=== PATIENT | male | born 1980 | race Hispanic/Latino ===

== ENCOUNTER → 2016-10-28 | Outpatient (CLI) | payer OTHER ==
[~2016-10-28] MED LIST: CIPR500T78 PO; DCS100C PO; HYDR-3454 PO; HYDR1TAB PO; LACT1CAP66 PO; ONDA4TAB8 PO
--- NOTE | 2016-10-28 13:03 | Diagnostic Imaging Report ---
PROCEDURE: CT abdomen and pelvis without contrast. TECHNIQUE: Multiple contiguous axial images were obtained through the abdomen and pelvis without the use of intravenous contrast. INDICATION: Right upper quadrant pain. FINDINGS: The previous CT abdomen/pelvis exam of 09/06/2014 suggested appendicitis. In the interval since the prior exam, the patient has undergone an appendectomy. Surgical clips are now present about the appendix. The liver is of lower density than usually seen. This appearance does suggest fatty metamorphosis. There is no focal mass involving the liver and the biliary tree is not abnormally dilated. There is no sign of cholelithiasis or acute cholecystitis and the common bile duct is not seen to be dilated either. The spleen, pancreas, adrenals, kidneys, aorta and inferior vena cava show no sign of an acute abnormality. The stomach is partially filled with particulate matter and fluid and consequently difficult to assess. There is no pelvic mass or free fluid collection noted. There is a considerable amount of fecal material in the rectosigmoid portion of the colon. The urinary bladder is grossly unremarkable. The prostate gland is not enlarged. The bone windows are unremarkable for a fracture or for destructive lesion. The sclerotic lesion within the right ilium seen previously is again evident and no different. The lung bases are clear. IMPRESSION: 1. There is no evidence for an acute abnormality of the abdomen/pelvis. 2. There are postoperative changes consistent with an interval appendectomy. 3. The appearance of the liver does suggest fatty metamorphosis. 4. There is no abnormality of the gallbladder, however, if clinical concern regarding an underlying abnormality of the gallbladder persists, then ultrasound would be recommended for further study. Dictated by: Dictated on workstation # [id number]
== END ==
LOC: RAD 10:26
PROVIDERS: ATTEND Nurse Practitioner Family
DX: R93.2 Abnormal findings on diagnostic imaging of liver and biliary tract (principal)
CPT/HCPCS: 74176

== ENCOUNTER → 2016-10-31 | Outpatient (CLI) | payer OTHER ==
[~2016-10-31] MED LIST changes: +CATHETER FLUSH 10 ML SYR IV PRN
--- NOTE | 2016-10-31 12:17 | Diagnostic Imaging Report ---
EXAMINATION: HIDA with EF measurements Indication: Abdominal pain TECHNIQUE: After the intravenous administration of 5 mCi of Tc 99m Choletec, imaging over the abdomen was obtained. This was followed by administration of Ensure orally to stimulate intrinsic CCK secretion, followed by continued imaging with ejection fraction measured. FINDINGS: There is homogeneous uptake in the liver with prompt bile duct and gallbladder filling seen. Bowel activity is seen at 10 minutes. Based on further imaging and gallbladder area of interest activity measurements after the administration of Ensure, the gallbladder ejection fraction is estimated at 75%. IMPRESSION: 1. Normal hepatobiliary uptake and Gallbladder filling. 2. Normal gallbladder ejection fraction. Dictated by: Dictated on workstation # [id number]
== END ==
LOC: CARD 09:45
PROVIDERS: ATTEND Nurse Practitioner Family
DX: R93.2 Abnormal findings on diagnostic imaging of liver and biliary tract (principal)
CPT/HCPCS: 78227

== ENCOUNTER → 2017-01-30 | Outpatient (CLI) | payer SELFPAY ==
[~2017-01-30] MED LIST changes: -CATHETER FLUSH 10 ML SYR IV PRN; +PANT40TA2 PO
== END ==
LOC: PREOP 14:55
PROVIDERS: ATTEND Surgery
DX: Z01.818 Encounter for other preprocedural examination (principal); R10.84 Generalized abdominal pain

== ENCOUNTER 2017-01-31 08:42 | Day surgery (SDC) | payer OTHER ==
[~2017-01-31 08:42] MED LIST changes: -PANT40TA2 PO
[2017-01-31 08:46] VITALS: BP 126/75
[2017-01-31] MEDS ORDERED: LACTATED RINGERS 1,000 ML IV STA (08:52)
[2017-01-31] MEDS ORDERED: HURRICAINE EXT TUBE (BENZOCAINE) XX PRN (09:00)
--- NOTE | 2017-01-31 09:27 | Progress Note-Pre Operative ---
Pre-Operative Progress Note H&P Reviewed The H&P was reviewed, patient examined and no changes noted. Date Seen by Provider: Jan 31, 2017 Time Seen by Provider: : Date H&P Reviewed: Jan 31, 2017 Time H&P Reviewed: : Pre-Operative Diagnosis: ruq abdominal pain DAVEY RICHTER DO Jan 31, 2017 9:27 am
[2017-01-31] MEDS ORDERED: MIDAZOLAM 2 MG/2 ML (VERSED) VIAL ONE (10:02)
[2017-01-31] MEDS ORDERED: proPOfol 200 MG/20 ML (DIPRIVAN) VIAL IV ONE ×2 (10:02→10:27)
[2017-01-31] MEDS ORDERED: HURRICAINE EXT TUBE (BENZOCAINE) ONE (10:04)
--- NOTE | 2017-01-31 10:39 | Progress Note-Post Operative ---
Post-Operative Progess Note Surgeon (s)/Bioinformatics Analyst (s) Surgeon DAVEY RICHTER DO Bioinformatics Analyst: na Pre-Operative Diagnosis ruq abdominal pain Post-Operative Diagnosis gastritis Procedure & Operative Findings Date of Procedure 01/31/17 Procedure Performed/Findings egd c biopsies Anesthesia Type per real estate development manager Estimated Blood Loss Estimated blood loss (mL): scant Specimens/Packing Specimens Removed antrum, cardia of stomach DAVEY RICHTER DO Jan 31, 2017 10:38
[2017-01-31] MEDS ORDERED: PANT40TA2 PO ×2 (10:40)
--- NOTE | 2017-01-31 10:46 | Discharge Inst-Simple/Standard ---
Discharge Inst-Standard Discharge Medications New, Converted or Re-Newed RX: Transmitted to Pharmacy Patient Instructions/Follow Up Plan of Care/Instructions/FU: Follow up with Dr. Jerez in 2 weeks Take medication as directed. Activity as Tolerated: Yes Discharge Diet: No Restrictions JOSE MARIA PUCKETT APRN Jan 31, 2017 10:45
[2017-01-31 11:05] VITALS: BP 109/76
[2017-01-31 11:35] VITALS: BP 117/73
--- NOTE | 2017-01-31 11:42 | OPERATIVE REPORT ---
DATE OF SERVICE: 01/31/2017 PREOPERATIVE DIAGNOSIS: Right upper quadrant abdominal pain. POSTOPERATIVE DIAGNOSIS: Gastritis. PROCEDURE: EGD with biopsies. ANESTHESIA: Per COMMUNITY HEALTH PROGRAM REPRESENTATIVE. ESTIMATED BLOOD LOSS: Scant. SPECIMENS: Of the antrum cardia of stomach. INDICATIONS: The patient is a 36-year-old male with right upper quadrant abdominal pain. He had a CT scan, ultrasound and HIDA scan, all of which were negative. He understands risks and benefits of procedure and wished to proceed with procedure. Consent was on chart. DESCRIPTION OF PROCEDURE: The patient was taken to the endoscopy suite, placed in left lateral recumbent position. Timeout was performed. Scope was inserted in mouth, down the esophagus, stomach and into the duodenum without difficulty. There were no polyps, masses or ulcerations within the duodenum. The scope was slowly retracted back into the stomach, which had very slight erythematous changes in the antrum, but also up in the cardia significant inflamed changes which biopsies were obtained of both areas. There were no polyps, masses or ulcerations present. No hiatal hernia was present. Scope was returned to its normal position, slowly withdrawn back into the distal esophagus which had no polyps, masses or ulcerations. Scope was slowly retracted back until completely removed, noting no other pathology. RECOMMENDATIONS: The patient will be started on Protonix 40 mg daily and also Carafate 1 gram four times a day. He will follow up in the office in 3 weeks. Will see how he is doing at that time and follow up on pathology. If he has any problems prior to that, he should be reevaluated at that time. Job ID: [id number] DocumentID: [id number] Dictated Date: 01/31/2017 10:41:23 Marine Cargo Inspector Date: 01/31/2017 11:42:44 Dictated By: DAVEY RICHTER DO
[2017-01-31 11:50] VITALS: BP 117/73
== END 2017-01-31 11:50 | disposition home or self-care (01) ==
LOC: ENDO 08:42
PROVIDERS: ATTEND Surgery
DX: K29.70 Gastritis, unspecified, without bleeding (principal)

== ENCOUNTER 2019-09-18 16:59 | Emergency (ER) | payer SELFPAY ==
[~2019-09-18] VITALS: Ht 162.5 cm; Wt 92.7 kg
[~2019-09-18 16:59] MED LIST changes: +PANT40TA2 PO
--- NOTE | 2019-09-18 18:09 | ED Respiratory ---
General Chief Complaint: Respiratory Problems Stated Complaint: ASTHMA ATTACK,SORE THROAT,SOB Nursing Triage Note: AMB TO ED SAFF CALLED FROM [facility] TODAY THAT WAS SENDING PATIENT OUT FOR RESP PROBLEMS AND SOA,AND SORE THROAT STAFF RECEIVED CALL APX 1100. PATIENT JUST NOW ARRIVED BECAUSE HE WAS AT WORK. CAME IN [employer]. WHO REPORTS THAT HAS NOT HAD FEVER PATIENT FEELING LIKE HIS ASTHMA GIVING HIM PROBLEM. WAS SEEN AT [facility] ON LAST WEEK AND PLACED ON AMOXIL History of Present Illness Date Seen by Provider: Sep 18, 2019 Time Seen by Provider: 17:00 Initial Comments 39-year-old male presents for cough and shortness of air, that he experienced last night, while trying to sleep. Patient reports he was recently diagnosed with asthma, his called [facility] earlier today because he had persistent coughing overnight. They spoke to our infectious disease nurse and recommended he come here for COVID testing and shortness of air. However when the patient presents, he denies shortness of air through the day today, he was able to work all day with no complaints. He's had no fevers and no known exposure to anyone with COVID. He's had no travel outside of the [facility]. He has not used his albuterol inhaler since 8:00 this morning. He is on Flovent BID and Albuterol Q4prn. Severity: mild Associated Symptoms: No chest pain/soreness, No cough, No fever/chills, No muscle aches, No nasal congestion, No shortness of breath, No sore throat, No wheezing Allergies and Home Medications Allergies Coded Allergies: No Known Drug Allergies (Unverified , 01/12/13) Home Medications Pantoprazole Sodium 40 Mg Tablet.dr, 40 MG PO DAILY Prescribed by: JOSE MARIA WINN on 01/31/17 1040 Patient Home Medication List Home Medication List Reviewed: Yes Review of Systems Review of Systems Constitutional: no symptoms reported, see HPI; No fever EENTM: see HPI, no symptoms reported Respiratory: no symptoms reported, see HPI, cough (at night); No short of breath, No wheezing Cardiovascular: no symptoms reported, see HPI Gastrointestinal: no symptoms reported, see HPI Genitourinary: no symptoms reported, see HPI Musculoskeletal: no symptoms reported, see HPI Skin: no symptoms reported, see HPI All Other Systems Reviewed Negative Unless Noted: Yes Past Qwaqtrv-Ogozuv-Kheeya Hx Past Med/Social Hx: Reviewed Nursing Past Med/Soc Hx Patient Social History Alcohol Use: Denies Use Recreational Drug Use: No Smoking Status: Never a Smoker Recent Foreign Travel: No Contact w/Someone Who Travel: No Recent Infectious Disease Expo: No Recent Hopitalizations: No Seasonal Allergies Seasonal Allergies: No Past Medical History Surgeries: No Appendectomy Respiratory: No Cardiac: No Neurological: No Reproductive Disorders: No Kidney Stones Gastrointestinal: Yes (GALL STONES) Musculoskeletal: No Endocrine: No Cancer: No Psychosocial: No Integumentary: No Blood Disorders: No Family Medical History Diabetes Physical Exam Vital Signs - First Documented 09/18/19 16:59 Temp 36.9 Pulse 96 Resp 18 B/P (MAP) 146/96 (113) Pulse Ox 98 O2 Delivery Room Air Capillary Refill : Less Than 3 Seconds Height: 5'7" Weight: 198lbs. oz. 89.770084me; 35.00 BMI Method:Stated General Appearance: WD/WN, no apparent distress Eyes: Bilateral Eye Normal Inspection, Bilateral Eye PERRL, Bilateral Eye EOMI HEENT: PERRL/EOMI, normal ENT inspection, TMs normal, pharynx normal Neck: non-tender, full range of motion, supple, normal inspection Respiratory: chest non-tender, lungs clear, normal breath sounds, no respiratory distress Cardiovascular: normal peripheral pulses, regular rate, rhythm Gastrointestinal: normal bowel sounds, non tender, soft Neurologic/Psychiatric: no motor/sensory deficits, alert, normal mood/affect, oriented x 3 Skin: normal color, warm/dry Progress/Results/Core Measures Suspected Sepsis Recent Fever Within 48 Hours: No Infection Criteria Present: None New/Unexplained Altered Menta: No Sepsis Screen: No Definite Risk SIRS Temperature: Pulse: 96 Respiratory Rate: 18 Blood Pressure 146 /96 Mean: 113 Results/Orders Lab Results Laboratory Tests Test 09/18/19 17:00 Range/Units Group A Streptococcus Screen NEGATIVE NEGATIVE Micro Results Microbiology 09/18/19 Influenza Types A,B Antigen (ANDREWS) - Final, Complete My Orders Orders - CYNTHIA BO Rapid Strep A Screen (09/18/19 17:03) Influenza A And B Antigens (09/18/19 17:03) Vital Signs/I&O 09/18/19 09/18/19 16:59 18:32 Temp 36.9 Pulse 96 67 Resp 18 18 B/P (MAP) 146/96 (113) 128/92 Pulse Ox 98 97 O2 Delivery Room Air Room Air Capillary Refill : Less Than 3 Seconds Blood Pressure Mean: 113 Progress Note : Time: 17:00 Progress Note Patient seen and evaluated, will obtain influenza and strep swabs. He used has albuterol inhaler 2 puffs. 1745 strep and influenza negative. Discussed with infectious disease nurse, he meets no criteria for COVID testing at this time. 1800 discharge and return precautions reviewed with the patient and his . All questions answered. Departure Impression Primary Impression: Asthma Qualified Codes: J45.20 - Mild intermittent asthma, uncomplicated Disposition: HOME, SELF-CARE Condition: Improved Departure-Patient Inst. Decision time for Depature: 18:00 Referrals: JESUS MANUEL GILLESPIE DO (PCP) Primary Care Physician ENRICO LISA (Family) Primary Care Physician Patient Instructions: Asthma, Adult (DC) Add. Discharge Instructions: Continue to use her inhalers as prescribed, use her rescue inhaler 2 puffs every 4 hours with 5 minutes between inhalations. You may take Robitussin or Delsym for the cough, you may take Benadryl 25-50 mg at bedtime to help with the postnasal drainage. Increase water intake. Follow-up at [facility] if symptoms are not improving or worsen. Notify the emergency department or community health if he begins running a fever greater than 100.4, persistent cough, or shortness of breath. Return to the emergency department for new, urgent health care needs. All discharge instructions reviewed with patient and/or family. Voiced understanding. CYNTHIA BO Sep 18, 2019 18:08
[2019-09-18 18:32] VITALS: BP 128/92
--- OUTSIDE RECORDS SUMMARY | 2019-09-18 19:50 | XMS REPORT ---
Author Author [facility] Organization [facility] Address [address] [address] Care Team Providers Care Designated Broker Name Role Phone SARA BINGHAM Unavailable JESUS MANUEL GILLESPIE Unavailable MADL, ENRICO Unavailable MADL, ENRICO Unavailable MADL, ENRICO Unavailable SEEMA LOU Unavailable ZAHRA MARTINEZ Unavailable Migration, Doctor Unavailable Unavailable Migration, Doctor Unavailable Unavailable JESUS MANUEL GILLESPIE Unavailable MADL, ENRICO Unavailable MADL, ENRICO Unavailable PCP, TRANSITION Unavailable Unavailable Allergies Normalized Allergy Reported Date of Reaction(s) Care Provider Facility Allergy Type classification allergen Allergy Onset DA (21 Unclassified No Known Drug 01-12-2013 - no information SARA BINGHAM , Not Available sources.) Allergies (98624) Medications Medication Ingredient Drug Dose Dates Status Sig Sig Care Class(es) (Normalized) (Original) Provid er amoxicillin Amoxicillin Penicillin- 1000 03-02-20 Active take 2 Amoxicillin no 500 mg oral Translation class mg 12 capsules by 500 mg 2 name capsule (1 s: [ Antibacteri mouth twice capsule by (no source.) Amoxicillin al daily Oral route 2 phone) 500 mg] times per day for 14 day(s) Feb, Active esomeprazol esomeprazol Proton Pump 40 mg 02-07-20 Active take 1 Nexium 40 mg no e 40 mg e Inhibitor 14 capsule by 1 capsule by n cris oral tablet mouth once Oral route 1 (no (2 daily time per day phone) sources.) Jan, Active metroNIDAZO metroNIDAZO Nitroimidaz 500 mg 03-02-20 Active take 1 Metronidazol no LE 500 mg LE ole 12 tablet by e 500 mg 1 name oral tablet Translation Antimicrobi mouth twice tablet by (n o (1 source.) s: [ al daily Oral route 2 phone) Metronidazo times per le 500 mg] day for 14 days Feb, Active Problems Active Problems Problem Normalized Date of Normalized Normalized Provider Fac ility Classification Problem(s) Problem Problem Problem Sta tus Onset/Resoluti Duration on Diabetes Diabetes Chronic Active SARA BINGHAM , Not Avail able mellitus mellitus (67304) without without complication mention of (3 sources.) complication, type II or unspecified type, not stated as uncontrolled Other liver Other chronic Chronic Active SARA BINGHAM , No t Available diseases (3 nonalcoholic MD (23147) sources.) liver disease Past or Other Problems Problem Normalized Date of Normalized Normalized Provider Fac ility Classification Problem(s) Problem Problem Problem Sta tus Onset/Resoluti Duration on Calculus of Calculus of Episodic Completed SARA BINGHAM , Not Available urinary tract ureter (65103) (5 sources.) Allergic Diarrhea Episodic Completed CELINE SULLIVAN Not Availab le reactions (8 (42975) sources.) Gastritis and Gastritis, Episodic Completed DAVEY RICHTER , No t Available duodenitis (2 unspecified, DO (60693) sources.) without bleeding Nausea and Nausea with Episodic Completed ASRA BINGHAM , Not A vailable vomiting (3 vomiting MD (83314) sources.) Other liver Other Episodic Completed SARA BINGHAM , Not Dali ilable diseases (5 nonspecific MD (39539) sources.) abnormal serum enzyme levels Other ear and Other Episodic Completed SARA BINGHAM , Not A vailable sense organ postprocedural MD (58929) disorders (2 status sources.) Procedures Procedure Normalized Procedure Procedure Result Performer Facility Date 02-06-2014 Assay of thyroid no information no name (no phone) [facility] stimulating hormone [facility] (27098) 02-06-2014 Blood count complete no information no name (no shelia ne) [facility] auto&auto difrntl wbc [facility] (47407) 02-06-2014 Collection venous no information no name (no phone) [facility] blood venipuncture [facility] (25704) 02-06-2014 Comprehensive no information no [facility] (no phone[facility] (11379) 02-06-2014 Immunoassay nfct agt no information no name (no shelia ne) [facility] antb qual/semiquan 1 [facility] (50692) 03-22-2018 Intraoral periapical no information no name (no shelia ne) [facility] (11776) Immunizations Normalized Immunization Date Notes Care Provider Facili ty Immunization influenza, 04-24-2018 no information ZAHRA MARTINEZ [address] [facility] [place] ([address]) preservative free influenza, seasonal, 04-03-2019 no information no name [facility] injectable [facility] (54741) influenza, seasonal, 04-24-2018 - no information ZAHRA MARTINEZ [address] [facility] injectable 04-24-2018 [facility] (27038) no information 04-24-2018 no information ZAHRA MARTINEZ [address] [facility] (92738) Results Test Name Value Interpretation Reference Range Date Time Fa cility (Normalized) (Normalized) (Medline Reference) No panel information on 2019-06-24 Exp date 02/13 (no code) [facility] (49072) HbA1c (Bld) 5.8 % (no code) 0 - 5.7 % [facility] [Mass fraction] [facility] (79666) [address] (no code) [facility] (46398) Previous A1c N/A (no code) [facility] (85232) No panel information on 2019-06-12 Gamma interferon 0.03 (N) [facility] [place] [facility]n [facility] (Bld) [facility] (09038) M. tuberculosis 0.01 (N) [facility] th stim IFN-g by [facility] CD4+ CD8+ [facility] T-cells (04694) corrected for background Qn (Bld) M. tuberculosis 0.02 [IU]/mL (N) [facility] th stim IFN-g by [facility] CD4+ T-cells [facility] corrected for (98060) background Qn (Bld) M. tuberculosis no information (N) [facility] th stim IFN-g Ql [facility] (Bld) [Interp] [facility] (49268) Mitogen >10.00 (N) [facility] gamma [facility] corrected for (32949) background Qn (Bld) No panel information on 2019-04-03 Albumin 4.4 g/dL (N) 3.4 - 5.4 g/dL [facility] [Mass/Vol] [facility] () Albumin/Globulin 1.5 {ratio} (N) 1 - 2.5 {ratio} [facility] [Mass ratio] [facility] (00071) ALP [Catalytic 49 U/L (N) 44 - 147 U/L [facility] activity/Vol] [facility] () ALT [Catalytic 35 U/L (N) 4 - 40 U/L [facility] activity/Vol] [facility] (30454) AST [Catalytic 28 U/L (N) 10 - 34 U/L [facility] activity/Vol] [facility] (19766) Bilirubin 0.7 mg/dL (N) 0.1 - 1.2 mg/dL [facility] [Mass/Vol] [facility] (18551) Calcium 9.1 mg/dL (N) 8.5 - 10.2 mg/dL [facility] [Mass/Vol] [facility] (93990) Chloride 105 mmol/L (N) 95 - 106 mmol/L [facility] [Moles/Vol] [facility] (46438) Cholesterol 157 mg/dL (N) 180 - 200 mg/dL [facility] [Mass/Vol] [facility] (80077) Cholesterol in 39 mg/dL (L) [facility] [[facility]/Vol] [facility] (54819) Cholesterol in 94 mg/dL (N) 0 - 100 mg/dL [facility] LDL [Mass/Vol] [facility] (47094) Cholesterol non 118 mg/dL (N) [facility] th HDL [Mass/Vol] [facility] (20296) Cholesterol.tota 4.0 {ratio} (N) [facility] l/Cholesterol in [facility] HDL [Mass ratio] [facility] (94975) CO2 [Moles/Vol] 30 mmol/L (N) 23 - 29 mmol/L [facility] (07939) Creatinine 1.00 mg/dL (N) [facility] h [Mass/Vol] [facility] (23512) GFR/1.73 sq M 109 (N) 90 - 120 Community [facility] predicted among mL/min/{1.73_m2} mL/min/{1.73_m2} [facility] blacks MDRD [facility] (S/P/Bld) [Vol (81717) rate/Area] GFR/1.73 sq 94 (N) 90 - 120 [facility] th M.predicted MDRD mL/min/{1.73_m2} mL/min/{1.73_m2} [facility] (S/P/Bld) [Vol [facility] rate/Area] (20786) Globulin (S) 3.0 g/dL (N) 2 - 3.5 g/dL [facility] [Mass/Vol] [facility] (29855) Glucose 106 mg/dL (H) 60 - 125 mg/dL [facility] [Mass/Vol] [facility] (16867) Potassium 4.1 mmol/L (N) 3.7 - 5.2 mmol/L [facility] [Moles/Vol] [facility] (56014) Protein 7.4 g/dL (N) 6.4 - 8.3 g/dL [facility] [Mass/Vol] [facility] (13582) Sodium 142 mmol/L (N) 135 - 145 mmol/L [facility] [Moles/Vol] [facility] (09776) Triglyceride 139 mg/dL (N) 0 - 150 mg/dL [facility] [Mass/Vol] [facility] (98974) TSH Qn 1.86 m[IU]/L (N) 0.4 - 4 m[IU]/L [facility] (16609) Urea nitrogen 11 mg/dL (N) 7 - 20 mg/dL [facility] [Mass/Vol] [facility] (95665) Urea NOT APPLICABLE (no code) [facility] nitrogen/Creatin [facility] [Mass ratio] [facility] (73066) Vital Signs Vital Sign Value Interpretation Reference Date Time Care Prov ider Facility (Normalized) (Normalized) Range Body 98.4 [degF] (no code) 97.8 - 99.0 02-06-2014 ENRICODAYNE DYE [facility] Temperature [degF] 16:25-0400 70200 [facility] (48782) Body weight 80.02 kg (no code) kg 02-06-2014 ENRICO [facility] 16:25-0400 79201 [facility] (68904) Height 165.1 cm (no code) cm 03-22-2018 SEEMA RIKAING C [facility]ity 12:30-0400 [facility] (71247) Height 165.1 cm (no code) cm 02-06-2014 ENRICO MARNIE Com [facility]unity 16:250400 65724 [facility] (89488) Interventions No Information Plan of Treatment The data below is from unstructured sources Discharge Date 01/31/17 11:50am Instructions/Education Provided EGD- ESOPHAGOGASTRODUODENOSCOPY Prescriptions See Medication Section Activity Details Follow Up establish care with a pcp Reason: Activity Details Follow Up vishal Reason:builup with cr own forms #9 Activity Details Follow Up 1 Year Reason: Goals No Information Social History The data below is from unstructured sources History Response Recorde d Date/Time Alcohol Use Denies Use 0 01/12/13 12:45am Recreational Drug Use N 01/12/13 12:45am Functional Status The data below is from unstructured sourcesNo functional status results.No functional status results.No functional status results.No functional status information available.No functional status information available. Mental Status No Information Encounters Encounter Normalized Encounter Encounter Diagnosis Care Provi malu Organization Date Type 03-22-2018 Limit oral eval problm no information no name (no p luba) no organization name focus (no phone) 07-03-2019 Patient encounter no information no name (no phone) no organization name procedure (no phone) 06-24-2019 Patient encounter no information no name (no phone) no organization name procedure (no phone) 06-21-2019 Patient encounter no information no name (no phone) no organization name procedure (no phone) 06-12-2019 Patient encounter no information no name (no phone) no organization name procedure (no phone) 04-03-2019 Patient encounter no information no name (no phone) no organization name procedure (no phone) 01-31-2017 Patient encounter no information no name (no phone) no organization name - procedure (no phone) 01-31-2017 10-31-2016 Patient encounter no information no name (no phone) no organization name procedure (no phone) 10-28-2016 Patient encounter no information no name (no phone) no organization name procedure (no phone) 07-20-2015 Patient encounter no information no name (no phone) no organization name procedure (no phone) 09-24-2014 Patient encounter no information no name (no phone) no organization name procedure (no phone) 09-06-2014 Patient encounter no information no name (no phone) no organization name - procedure (no phone) 09-07-2014 10-29-2012 Patient encounter no information no name (no phone) no organization name procedure (no phone) 10-24-2012 Patient encounter no information no name (no phone) no organization name procedure (no phone) Medical Equipment No Information Payers The data below is from unstructured sources Payer Name Policy Number Subscriber Name Relationship Self Pay RodgersKiel Naya Self / Same As Patient Advance Directives Directive Response Recor ded Date Advance Directives N 12:45am Directive Response Recor ded Date/Time Advance Directives No 4:08pm Organ Donor No 09/06/14 4:08pm Resuscitation Status Full Code 09/06/14 4:08pm Directive Response Recor ded Date/Time Advance Directives No 7:03pm Organ Donor No 02/10/14 7:03pm Resuscitation Status Full Code 02/10/14 7:03pm Directive Response Recor ded Date/Time Advance Directives No 8:46am Organ Donor No 01/31/17 8:46am Resuscitation Status Full Code 01/31/17 8:46am Discharge Instructions No hospital discharge instructions.No hospital discharge instructions. Patient Instructions Physician Instructions New, Converted or Re-Newed RX: Transmitted to Pharmacy Plan of Care/Instructions/FU: Follow up with Dr. Richter in 2 weeks Take medication as directed. Activity as Tolerated: Yes Care Plan Patient Instructions:: Follow up with Dr. Richter in 2 weeksTake medication as directed. Additional Source Comments This clinical document has been generated using [employer] software that has been certified by the Office of the National Coordinator for Health Information Technology (ONC 15.99.04.3023.Diam.31.00.0.098327) and the National Committee for Automatic Grinder Operator (NCQA, as an eMeasure certified technology). FOR RECORDS PERTAINING TO PATIENTS WHO ARE OR HAVE BEEN ENROLLED IN A CHEMICAL D EPENDENCY/SUBSTANCE ABUSE PROGRAM, SOME INFORMATION MAY BE OMITTED. This clinica l summary was aggregated from multiple sources. Caution should be exercised in using it in the provision of clinical care. This summary normalizes information from multiple sources, and as a consequence, information in this document may ma terially change the coding, format and clinical context of patient data. In elias tion, data may be omitted in some cases. CLINICAL DECISIONS SHOULD BE BASED ON T HE PRIMARY CLINICAL RECORDS. [employer] provides no warranty or guara ntee of the accuracy or completeness of information in this document.The followi information is based on time limited clinical information UNRECOGNIZED CONTENT PROVIDED BELOW FOR UNRECOGNIZED SECTION MEDICAL (GENERAL) HISTORY Type Description Date Medical History Heartburn Medical History Kidney stone passes on its own seen at [facility] Surgical History Appendix 2015 Type Description Date Medical History Heartburn Medical History Kidney stone passes on its own seen at [facility] Medical History 01-31-17 EGD [facility] Chronic Gastritis and H pylori Surgical History Appendix 2015 UNRECOGNIZED CONTENT PROVIDED BELOW FOR UNRECOGNIZED SECTION REASON FOR VISIT PAINFlu shot. [id number]
--- OUTSIDE RECORDS SUMMARY | 2019-09-18 19:50 | XMS REPORT ---
Author Author Kiel Hendrickson Doctor Organization [facility] Address Unknown Phone Unavailable Care Team Providers Care Basketball Commentator Name Role Phone Migration, Doctor Unavailable Unavailable PROBLEMS Type Condition ICD9-CM Code [id number] Code Onset Dates Condition S tatus SNOMED Code Problem Abnormal ultrasound of liver R93.2 A ctive 99603010658731893 Problem Right upper quadrant abdominal pain R10.11 Active [id number] ALLERGIES No Information ENCOUNTERS Encounter Location Date Diagnosis [place] [address] [address] Nov, [address] [place] [address] Mar, 18 Encounter for immunization Z23 [facility] [address] [address] Mar, Chronic intractable headache , unspecified headache type R51 [facility] [address] [place] [id number] [place] [id number] Feb, Dental examination Z01.20 an d Caries K02.9 [facility] [address] [address] October, [facility] [address] [address] October, [place] [address] [address] October, Right upper quadrant abdomin al pain R10.11 and Abnormal ultrasound of liver R93.2 [facility] [address] [address] Jun, Heartburn R12 ; Right upper quadrant abdominal pain R10.11 and Headache, unspecified headache type R51 [facility] [address] [address] Sep, [facility] [address] [id number] [address] [place] [phone] Sep, [facility] [address] [id number] [address] [place] [phone] Feb, [facility] [address] [id number] [address] [place] [phone] Feb, [facility] [address] [id number] [address] [place] [phone] Jan, [facility] [address] [id number] [address] [place] [phone] Jan, [facility] [address] [id number] [address] [place] [phone] Jan, [facility] [address] [id number] [address] [place] [phone] Jan, [facility] [address] [id number] [address] [place] [phone] Jan, [facility] [address] [id number] [address] [place] [phone] Feb, [facility] [address] [id number] [address] [place] [phone] Mar, [facility] [address] [id number] [address] [place] [phone] Mar, IMMUNIZATIONS No Known Immunizations SOCIAL HISTORY Never Assessed REASON FOR VISIT [facility] PLAN OF CARE VITAL SIGNS MEDICATIONS Unknown Medications RESULTS No Results PROCEDURES No Known procedures INSTRUCTIONS MEDICATIONS ADMINISTERED No Known Medications MEDICAL (GENERAL) HISTORY Type Description Date Medical History Heartburn Medical History Kidney stone passes on its own seen at [facility] Medical History 01-31-[address] [facility] Chronic Gastritis and H pylori Surgical History Appendix 2014
--- OUTSIDE RECORDS SUMMARY | 2019-09-18 19:50 | XMS REPORT ---
Author Author Kiel LISA Organization [facility] Address [address] [place] [address] Care Team Providers Care Dewatering Filtering Supervisor Name Role Phone MARNIECheryle ERNICO Unavailable PROBLEMS Type Condition ICD9-CM Code [id number] Code Onset Dates Condition S tatus SNOMED Code Problem Right upper quadrant abdominal pain R10.11 Active [id number] Problem Abnormal ultrasound of liver R93.2 A ctive [id number] ALLERGIES No Information ENCOUNTERS Encounter Location Date Diagnosis [facility] [address] [id number] [address] [place] [phone] October, [facility] [address] [id number] [address] [place] [phone] October, [facility] [address] [id number] [address] [place] [phone] October, Right upper quadrant abdomin al pain R10.11 and Abnormal ultrasound of liver R93.2 [facility] [address] [id number] [address] [place] [phone] Jun, Heartburn R12 ; Right upper quadrant abdominal pain R10.11 and Headache, unspecified headache type R51 [facility] [address] [id number] [address] [place] [phone] Sep, [facility] [address] [id number] [address] [place] [phone] Sep, [facility] [address] [id number] [address] [place] [phone] Feb, [facility] [address] [id number] [address] [place] [phone] Feb, [facility] [address] [id number] [address] [place] [phone] Jan, [facility] [address] [id number] [address] [place] [phone] Jan, [facility] [address] [id number] [address] [place] [phone] Jan, [facility] [address] [id number] [address] [place] [phone] Jan, [facility] [address] [id number] [address] [place] [phone] Jan, [facility] [address] [id number] [address] [place] [phone] Feb, [facility] [address] [id number] [address] [place] [phone] Mar, [facility] [address] [id number] [address] [place] [phone] Mar, IMMUNIZATIONS No Known Immunizations SOCIAL HISTORY Never Assessed REASON FOR VISIT right side abdominal pain PLAN OF CARE VITAL SIGNS MEDICATIONS Unknown [...]
--- OUTSIDE RECORDS SUMMARY | 2019-09-18 19:50 | XMS REPORT ---
Author Author Kiel LISA Organization [facility] [place] Address [address] [place] [address] Care Team Providers Care Aircraft Metalsmith Name Role Phone MARNIECheryle ENRICO Unavailable PROBLEMS Type Condition ICD9-CM Code CHK39-XQ Code Onset Dates Condition S tatus SNOMED Code Problem Abnormal ultrasound of liver R93.2 A ctive [id number] Problem Right upper quadrant abdominal pain R10.11 Active [id number] ALLERGIES No Information ENCOUNTERS Encounter Location Date Diagnosis [facility] [address] [place] [address] Mar, 18 Encounter for immunization Z23 [facility] [address] [address] Mar, Chronic intractable headache , unspecified headache type R51 [facility] [address] [id number] [address] [place] [id number] Feb, Dental examination Z01.20 an d Caries K02.9 [facility] [place] [address] [address] October, [facility] [place] [address] [address] October, [place] [address] [address] October, Right upper quadrant abdomin al pain R10.11 and Abnormal ultrasound of liver R93.2 [facility] [place] [address] [address] Jun, Heartburn R12 ; Right upper quadrant abdominal pain R10.11 and Headache, unspecified headache type R51 [facility] [place] [address] [address] Sep, [facility] [place] [address] [id number] [address] [place] [phone] Sep, [facility] [place] [address] [id number] [address] [place] [phone] Feb, [facility] [place] [address] [id number] [address] [place] [phone] Feb, [facility] [place] [address] [id number] [address] [place] [phone] Jan, [facility] [place] [address] [id number] [address] [place] [phone] Jan, [facility] [place] [address] [id number] [address] [place] [phone] Jan, [facility] [place] [address] [id number] [address] [place] [phone] Jan, [facility] [place] [address] [id number] [address] [place] [phone] Jan, [facility] [place] [address] [id number] [address] [place] [phone] Feb, [facility] [place] [address] [id number] [address] [place] [phone] Mar, [facility] [place] [address] [id number] [address] [place] [phone] Mar, IMMUNIZATIONS No Known Immunizations SOCIAL HISTORY Never Assessed REASON FOR VISIT PLAN OF CARE VITAL SIGNS MEDICATIONS Unknown [...]
--- OUTSIDE RECORDS SUMMARY | 2019-09-18 19:50 | XMS REPORT ---
Author Author Kiel MARTINEZ Organization [facility] [address] Address [address] [place] [address] Care Team Providers Care Forming Process Worker Name Role Phone THEOZAHRA RAMIREZ Unavailable PROBLEMS Type Condition ICD9-CM Code GHG63-RW Code Onset Dates Condition S tatus SNOMED Code Problem Right upper quadrant abdominal pain R10.11 Active 346204333 Problem Abnormal ultrasound of liver R93.2 A ctive [id number] ALLERGIES No Information ENCOUNTERS Encounter Location Date Diagnosis [facility] [address] [place] [address] Mar, 18 Encounter for immunization Z23 [facility] [address] [address] Mar, Chronic intractable headache , unspecified headache type R51 [facility] [address] [place] [address] [id number] [address] [place] [phone] Feb, Dental examination Z01.20 an d Caries K02.9 [facility] [address] [address] October, [facility] [address] [address] October, [facility] [address] [address] October, Right upper quadrant abdomin al pain R10.11 and Abnormal ultrasound of liver R93.2 [facility] [address] [address] [id number] [place] [phone] Jun, Heartburn R12 ; Right upper quadrant abdominal pain R10.11 and Headache, unspecified headache type R51 [facility] [address] [place] [id number] [address] [place] [phone] Sep, [facility] [address] [id number] [address] [place] [phone] Sep, [facility] [address] [id number] [address] [place] [phone] Feb, [facility] [address] [id number] [address] [place] [phone] Feb, [facility] [address] [id number] [address] [place] [phone] Jan, [facility] [address] [id number] [address] [place] [phone] Jan, [facility] [address] [id number] [address] [place] [phone] Jan, [facility] [address] [id number] [address] [place] [phone] Jan, [facility] [address] [id number] [address] [place] [phone] Jan, [facility] [address] [id number] [address] [place] [phone] Feb, [facility] [address] [id number] [address] [place] [phone] Mar, [facility] [address] [id number] [address] [place] [phone] Mar, IMMUNIZATIONS Vaccine Route Administration Date Status FLULAVAL QUAD 0.5ML (6 MO & UP) 2017 IM Intramuscular Apr 24 Administered SOCIAL HISTORY Never Assessed REASON FOR VISIT Flu shot. Julianne PLAN OF CARE Activity Details Follow Up 1 Year Reason: VITAL SIGNS MEDICATIONS Unknown Medications RESULTS No Results PROCEDURES Procedure Date Ordered Result Body Site FLULAVAL QUAD 0.5ML (6 MO AND UP) 2017Apr 24, 2018 SINGLE IMMUNIZATION ADMIN Apr 24, 2018 INSTRUCTIONS MEDICATIONS ADMINISTERED No Known Medications MEDICAL (GENERAL) HISTORY Type Description Date Medical History Heartburn Medical History Kidney stone passes on its own seen at [facility] Medical History 01-31-17 [address] [facility] Chronic Gastritis and H pylori Surgical History Appendix 2015
--- OUTSIDE RECORDS SUMMARY | 2019-09-18 19:50 | XMS REPORT ---
Author Author RIKAKiel HOBBS SEEMA Organization [facility] Address Unknown Care Team Providers Care Tailing Hand Name Role Phone SEEMA LOU Unavailable PROBLEMS Type Condition ICD9-CM Code TAW68-AI Code Onset Dates Condition S tatus SNOMED Code Problem Right upper quadrant abdominal pain R10.11 Active 558487878 Problem Abnormal ultrasound of liver R93.2 A ctive [id number] ALLERGIES No Known Allergies ENCOUNTERS Encounter Location Date Diagnosis [facility] [address] [id number] [address] [place] [id number] Feb, Dental examination Z01.20 an d Caries K02.9 [facility] [place] [address] [id number] [address] [place] [phone] October, [facility] [place] [address] [id number] [address] [place] [phone] October, [facility] [place] [address] [id number] [address] [place] [phone] October, Right upper quadrant abdomin al pain R10.11 and Abnormal ultrasound of liver R93.2 [facility] [place] [address] [id number] [address] [place] [phone] Jun, Heartburn R12 ; Right upper quadrant abdominal pain R10.11 and Headache, unspecified headache type R51 [facility] [place] [address] [id number] [address] [place] [phone] Sep, [facility] [place] [address] [id number] [address] [place] [phone] Sep, [facility] [place] [address] [id number] [address] [place] [phone] Feb, [facility] [place] [address] [id number] [address] [place] [phone] 02 Feb, 2014 [facility] [place] [address] [id number] [address] [place] [phone] Jan, [facility] [place] [address] [id number] [address] [place] [phone] Jan, [facility] [place] [address] [id number] [address] [place] [phone] Jan, [facility] [place] [address] [id number] [address] [place] [phone] Jan, [facility] [place] [address] [id number] [address] [place] [phone] Jan, [facility] [place] [address] [id number] [address] [place] [phone] Feb, [facility] [place] [address] [id number] [address] [place] [phone] Mar, [facility] [place] [address] [id number] [address] [place] [phone] Mar, IMMUNIZATIONS No Known Immunizations SOCIAL HISTORY Never Assessed REASON FOR VISIT PAIN PLAN OF CARE Activity Details Follow Up vishal Reason:builup with tunica-biloxi n forms #9 VITAL SIGNS Height 65 in 2018-03-22 Blood pressure systolic 118 mmHg 2018-03-22 Blood pressure diastolic 78 mmHg 2018-03-22 MEDICATIONS Medication Instructions Dosage Frequency Start Date End Date Duration S tatus Nexium 40 mg oral daily 1 capsule 24h Jan, N ot-Taking RESULTS No Results PROCEDURES Procedure Date Ordered Result Body Site LTD ORAL EVALUATION - PROBLEM FOCUS Mar 22, 2018 INTRAORL-PERIAPICAL 1 FILM 94330 Mar 22, 2018 INSTRUCTIONS MEDICATIONS ADMINISTERED No Known Medications MEDICAL (GENERAL) HISTORY Type Description Date Medical History Heartburn Medical History Kidney stone passes on its own seen at [facility] Medical History 01-31-[address] [facility] Chronic Gastritis and H pylori Surgical History Appendix 2014
--- OUTSIDE RECORDS SUMMARY | 2019-09-18 19:50 | XMS REPORT ---
Author Author Kiel LISA Organization [facility] Address [address] [place] [address] Care Team Providers Care High [employer] Social Science Teacher Name Role Phone MARIA L ENRICO Unavailable PROBLEMS Type Condition ICD9-CM Code FJE04-GU Code Onset Dates Condition S tatus SNOMED Code Problem Right upper quadrant abdominal pain R10.11 Active 396674311 Problem Abnormal ultrasound of liver R93.2 A ctive [id number] ALLERGIES No Known Allergies SOCIAL HISTORY Never Assessed PLAN OF CARE Activity Details Follow Up establish care with a pcp Re ason: VITAL SIGNS Height 65 in 2016-10-25 Weight 191.0 lbs 2016-10-25 Temperature 97.6 degrees Fahrenheit 2016-10-25 Heart Rate 72 bpm 2016-10-25 Respiratory Rate 18 2016-10-25 BMI 31.78 kg/m2 2016-10-25 Blood pressure systolic 118 mmHg 2016-10-25 Blood pressure diastolic 78 mmHg 2016-10-25 MEDICATIONS Unknown Medications RESULTS Name Result Date Reference Range CBC 2016-10-25 WBC 9.6 3.4-10.8 RBC 5.09 4.14-5.80 Hemoglobin 14.9 12.6-17.7 Hematocrit 43.6 37.5-51.0 MCV 86 79-97 MCH 29.3 26.6-33.0 MCHC 34.2 31.5-35.7 RDW 13.2 12.3-15.4 Platelets 243 150-379 Neutrophils 63 Lymphs 28 Monocytes 8 Eos 1 Basos 0 Immature Cells Neutrophils (Absolute) 6.0 1.4-7.0 Lymphs (Absolute) 2.7 0.7-3.1 Monocytes(Absolute) 0.8 0.1-0.9 Eos (Absolute) 0.1 0.0-0.4 Baso (Absolute) 0.0 0.0-0.2 Immature Granulocytes 0 Immature Grans (Abs) 0.0 0.0-0.1 NRBC Hematology Comments: CMP 2016-10-25 Glucose, Serum 91 65-99 BUN 13 6-20 Creatinine, Serum 0.95 0.76-1.27 eGFR If NonAfricn Am 101 >59 eGFR If Africn Am 117 >59 BUN/Creatinine Ratio 14 9-20 Sodium, Serum 141 134-144 Potassium, Serum 4.4 3.5-5.2 Chloride, Serum 102 96-106 Carbon Dioxide, Total 21 18-29 Calcium, Serum 9.5 8.7-10.2 Protein, Total, Serum 7.4 6.0-8.5 Albumin, Serum 4.4 3.5-5.5 Globulin, Total 3.0 1.5-4.5 A/G Ratio 1.5 1.2-2.2 Bilirubin, Total 0.3 0.0-1.2 Alkaline Phosphatase, S 55 39-117 AST (SGOT) 32 0-40 ALT (SGPT) 37 0-44 CT Scan : Abdomen & Pelvis w/o Contrast HIDA Scan 2016-10-31 PROCEDURES Procedure Date Ordered Result Body Site COMPREHEN METABOLIC PANEL October 25, 2016 COMPLETE CBC W/AUTO DIFF WBC October 25, 2016 VENIPUNCT, ROUTINE* October 25, 2016 IMMUNIZATIONS No Known Immunizations MEDICAL (GENERAL) HISTORY Type Description Date Medical History Heartburn Medical History Kidney stone passes on its own seen at [facility] Surgical History Appendix 2014
--- OUTSIDE RECORDS SUMMARY | 2019-09-18 19:50 | XMS REPORT ---
Author Author Kiel LISA Organization [facility] Address [address] [place] [address] Care Team Providers Care Frame Nailer Name Role Phone MARIA L ENRICO Unavailable PROBLEMS Type Condition ICD9-CM Code MTQ29-CI Code Onset Dates Condition S tatus SNOMED Code Problem Abnormal ultrasound of liver R93.2 A ctive [id number] Problem Right upper quadrant abdominal pain R10.11 Active [id number] ALLERGIES No Information ENCOUNTERS Encounter Location Date Diagnosis [facility] [address] [place] [id number] Mar, 201 8 Encounter for immunization Z23 [facility] [address] [address] Mar, Chronic intractable headache , unspecified headache type R51 [facility] [address] [place] [address] [id number] [address] [place] [address] [id number] Feb, Dental examination Z01.20 an d Caries K02.9 [facility] [address] [address] October, [facility] [address] [address] October, [facility] [address] [address] October, Right upper quadrant abdomin al pain R10.11 and Abnormal ultrasound of liver R93.2 [facility] [address] [address] Jun, Heartburn R12 ; Right upper quadrant abdominal pain R10.11 and Headache, unspecified headache type R51 [facility] [address] [address] Sep, [facility] [address] [id number] [address] [place] [phone] Sep, [facility] [address] [id number] [address] [place] [phone] Feb, [facility] [address] [id number] [address] [place] [phone] Feb, [facility] [address] [id number] [address] [place] [phone] Jan, [facility] [address] [id number] [address] [place] [phone] Jan, [facility] [address] [id number] [address] [place] [phone] Jan, [facility] [address] [id number] [address] [place] [phone] Jan, [facility] [address] [id number] [address] [place] [phone] Jan, [facility] [address] [id number] [address] [place] [phone] Feb, [facility] [address] [id number] [address] [place] [phone] Mar, [facility] [address] [id number] [address] [place] [phone] Mar, IMMUNIZATIONS No Known Immunizations SOCIAL HISTORY Never Assessed REASON FOR VISIT PLAN OF CARE VITAL SIGNS Height 65 in 2014-02-06 Weight 176.41 lbs 2014-02-06 Temperature 98.4 degrees Fahrenheit 2014-02-06 Heart Rate 72 bpm 2014-02-06 Respiratory Rate 16 2014-02-06 Blood pressure systolic 116 mmHg 2014-02-06 Blood pressure diastolic 84 mmHg 2014-02-06 MEDICATIONS Unknown Medications RESULTS No Results PROCEDURES Procedure Date Ordered Result Body Site COMPLETE CBC W/AUTO DIFF WBC Feb 06, 2014 IMMUNOASSAY,INFECTIOUS AGENT Feb 06, 2014 ASSAY THYROID STIM HORMONE Feb 06, 2014 COMPREHEN METABOLIC PANEL Feb 06, 2014 VENIPUNCT, ROUTINE* Feb 06, 2014 INSTRUCTIONS MEDICATIONS ADMINISTERED No Known Medications MEDICAL (GENERAL) HISTORY Type Description Date Medical History Heartburn Medical History Kidney stone passes on its own seen [facility] Medical History 01-31-[address] [facility] Chronic Gastritis and H pylori Surgical History Appendix 2014
--- OUTSIDE RECORDS SUMMARY | 2019-09-18 19:50 | XMS REPORT ---
Author Author Kiel GILLESPIE Organization [facility] Address [address] [place] [address] Care Team Providers Care Health Insurance Adjuster Name Role Phone JOSE MIGUEL JESUS MANUEL Unavailable PROBLEMS Type Condition ICD9-CM Code AYM47-QL Code Onset Dates Condition S tatus SNOMED Code Problem Abnormal ultrasound of liver R93.2 A ctive [id number] Problem Right upper quadrant abdominal pain R10.11 Active 578833533 ALLERGIES No Information ENCOUNTERS Encounter Location Date Diagnosis [facility] [address] [place] [address] Mar, 18 Encounter for immunization Z23 [facility] [address] [address] Mar, Chronic intractable headache , unspecified headache type R51 [facility] [address] [place] [id number] [place] [id number] Feb, Dental examination Z01.20 an d Caries K02.9 [facility] [address] [place] [address] October, [facility] [address] [address] October, [address] [address] October, Right upper quadrant abdomin al pain R10.11 and Abnormal ultrasound of liver R93.2 [facility] [address] [place] [address] Jun, Heartburn R12 ; Right upper quadrant abdominal pain R10.11 and Headache, unspecified headache type R51 [facility] [address] [address] Sep, [facility] [address] [id number] [address] [place] [phone] Sep, [facility] [address] [id number] [address] [place] [phone] Feb, [facility] [address] [id number] [address] [place] [phone] Feb, [facility] [address] [id number] [address] [place] [phone] Jan, [facility] [address] [id number] [address] [place] [phone] Jan, [facility] [address] [id number] [address] [place] [phone] Jan, [facility] [address] [id number] [address] [place] [phone] Jan, [facility] [address] [id number] [address] [place] [phone] Jan, [facility] [address] [id number] [address] [place] [phone] Feb, [facility] [address] [id number] [address] [place] [phone] Mar, [facility] [address] [id number] [address] [place] [phone] Mar, IMMUNIZATIONS No Known Immunizations SOCIAL HISTORY [...]
--- OUTSIDE RECORDS SUMMARY | 2019-09-18 19:50 | XMS REPORT ---
Author Author Kiel Hendrickson Doctor Organization [facility] Address Unknown Phone Unavailable Care Team Providers Care Life Enrichment Director Name Role Phone Migration, Doctor Unavailable Unavailable PROBLEMS Type Condition ICD9-CM Code KCR26-NP Code Onset Dates Condition S tatus SNOMED Code Problem Abnormal ultrasound of liver R93.2 A ctive [id number] Problem Right upper quadrant abdominal pain R10.11 Active [id number] ALLERGIES No Information ENCOUNTERS Encounter Location Date Diagnosis [facility] [address] [place] [address] Mar, 18 Encounter for immunization Z23 [facility] [address] [address] Mar, Chronic intractable headache , unspecified headache type R51 [facility] [address] [id number] [place] [id number] Feb, Dental examination Z01.20 an d Caries K02.9 [facility] [address] [address] October, [facility] [address] [address] October, [facility] [address] [address] October, Right upper quadrant abdomin al pain R10.11 and Abnormal ultrasound of liver R93.2 [facility] [address] [id number] [address] [place] [phone] Jun, Heartburn R12 ; Right upper quadrant abdominal pain R10.11 and Headache, unspecified headache type R51 [facility] [address] [id number] [address] [place] [phone] Sep, [facility] [address] [id number] [address] [place] [phone] Sep, [facility] [address] [id number] [address] [place] [phone] Feb, [facility] [address] [id number] [address] [place] [phone] Feb, [facility] [address] [id number] [address] [place] [phone] Jan, [facility] [address] [id number] [address] [place] [phone] Jan, [facility] [address] [id number] [address] [place] [phone] Jan, [facility] [address] [id number] [address] [place] [phone] Jan, [facility] [address] [id number] [address] [place] [phone] Jan, [facility] [address] [id number] [address] [place] [phone] Feb, [facility] [address] [id number] [address] [place] [phone] Mar, [facility] [address] [id number] [address] [place] [phone] Mar, IMMUNIZATIONS No Known Immunizations SOCIAL HISTORY Never Assessed REASON FOR VISIT [facility] PLAN OF CARE VITAL SIGNS MEDICATIONS Medication Instructions Dosage Frequency Start Date End Date Duration S tatus Nexium 40 mg 1 capsule by Oral route 1 time per day 14 A 2013 Active Metronidazole 500 mg 1 tablet by Oral route 2 times pe r day for 14 days Feb, Active Amoxicillin 500 mg 2 capsule by Oral route 2 times per day for 14 day(s) Feb, Active RESULTS No Results PROCEDURES No Known procedures INSTRUCTIONS MEDICATIONS ADMINISTERED No Known Medications MEDICAL (GENERAL) HISTORY Type Description Date Medical History [facility] History Kidney stone passes on its own seen [facility] 01-31-[address] [facility] Chronic Gastritis and H pylori Surgical History Appendix 2014
--- OUTSIDE RECORDS SUMMARY | 2019-09-18 19:50 | XMS REPORT ---
Author Author Kiel LISA [facility] Address [address] [place] [address] Care Team Providers Care Tire Man Name Role Phone ENRICO LISA Unavailable PROBLEMS Type Condition ICD9-CM Code LTR35-CW Code Onset Dates Condition S tatus SNOMED Code Problem Right upper quadrant abdominal pain R10.11 Active [id number] Problem Abnormal ultrasound of liver R93.2 A ctive [id number] ALLERGIES No Information SOCIAL HISTORY Never Assessed PLAN OF CARE VITAL SIGNS MEDICATIONS Unknown Medications RESULTS No Results PROCEDURES No Known procedures IMMUNIZATIONS No Known Immunizations MEDICAL (GENERAL) HISTORY Type Description Date Medical History Heartburn Medical History Kidney stone passes on its own seen at [facility] History Appendix 2014
== END 2019-09-18 18:32 | disposition home or self-care (01) ==
LOC: EDUNIT# 16:59 → ER 17:01
DX: J45.20 Mild intermittent asthma, uncomplicated (principal)
CPT/HCPCS: 87430; 87804

== ENCOUNTER 2020-07-06 19:55 | Emergency (ER) | payer SELFPAY ==
[~2020-07-06] VITALS: Ht 167 cm; Wt 86.1 kg
--- NOTE | 2020-07-06 20:22 | ED General ---
General Stated Complaint: LEFT ARM PAIN, LEFT LEG PAIN Source of Information: Patient Exam Limitations: No Limitations History of Present Illness Date Seen by Provider: Jul 06, 2020 Time Seen by Provider: 20:16 Initial Comments To ER with reports of left arm pain and left leg pain. This has been present for 2 weeks and getting worse. He has also had headaches. He states that at night his left leg goes to sleep. The pain is not alleviated by anything but it is worsened when he gets angry. The pain to the left arm is over the volar side of the forearm over about a 6 inch segment of a very specific vein. Similarly into the dorsum of the left foot is about a 1 inch segment of vein that is tender. The remainder of the foot and arm is nontender. Timing/Duration: 1-2 Days Severity: Moderate Associated Systoms: Denies Symptoms Allergies and Home Medications Allergies Coded Allergies: No Known Drug Allergies (Unverified , 01/12/13) Home Medications Pantoprazole Sodium 40 Mg Tablet.dr, 40 MG PO DAILY Prescribed by: JOSE MARIA WINN on 01/31/17 1040 Patient Home Medication List Home Medication List Reviewed: Yes Review of Systems Review of Systems Constitutional: see HPI; No chills, No fever EENTM: see HPI Respiratory: no symptoms reported Cardiovascular: no symptoms reported; No chest pain, No palpitations Genitourinary: no symptoms reported Musculoskeletal: no symptoms reported Skin: no symptoms reported Psychiatric/Neurological: No Symptoms Reported Hematologic/Lymphatic: No Symptoms Reported Past Iecqtlf-Apdscm-Pjtrde Hx Patient Social History Recent Hopitalizations: No Seasonal Allergies Seasonal Allergies: No Past Medical History Surgeries: No Appendectomy Respiratory: No Cardiac: No Neurological: No Reproductive Disorders: No Kidney Stones Gastrointestinal: Yes (GALL STONES) Musculoskeletal: No Endocrine: No Cancer: No Psychosocial: No Integumentary: No Blood Disorders: No Family Medical History Diabetes Physical Exam Vital Signs Vital Signs - First Documented 07/06/20 20:05 Temp 35.9 Pulse 78 Resp 16 B/P (MAP) 145/98 (114) Pulse Ox 98 O2 Delivery Room Air Capillary Refill : Height, Weight, BMI Height: 5'7" Weight: 198lbs. oz. 89.057174wf; 35.00 BMI Method:Stated General Appearance: No Apparent Distress, WD/WN Eyes: Bilateral Eye Normal Inspection, Bilateral Eye PERRL, Bilateral Eye EOMI HEENT: PERRL/EOMI, TMs Normal Neck: Full Range of Motion, Normal Inspection Respiratory: No Accessory Muscle Use, No Respiratory Distress Cardiovascular: Regular Rate, Rhythm, Normal Peripheral Pulses Gastrointestinal: Normal Bowel Sounds, Non Tender, Soft Extremity: Normal Capillary Refill, Normal Inspection Neurologic/Psychiatric: Alert, Oriented x3 Skin: Normal Color, Warm/Dry, Other (The veins at the site of pain are easily compressible and without any erythema or tenderness to palpation no firmness and no "palpable cord" as would be typical of a superficial thrombophlebitis) Progress/Results/Core Measures Suspected Sepsis SIRS Temperature: Pulse: Respiratory Rate: Laboratory Tests 07/06/20 20:22: White Blood Count 9.4 Blood Pressure / Mean: Laboratory Tests 07/06/20 20:22: Creatinine 1.18, Platelet Count 209, Total Bilirubin 0.4 Results/Orders Lab Results Laboratory Tests Test 07/06/20 20:22 Range/Units White Blood Count 9.4 4.3-11.0 10^3/uL Red Blood Count 5.31 4.30-5.52 10^6/uL Hemoglobin 15.1 13.3-17.7 g/dL Hematocrit 45 40-54 % Mean Corpuscular Volume 84 80-99 fL Mean Corpuscular Hemoglobin 28 25-34 pg Mean Corpuscular Hemoglobin Concent 34 32-36 g/dL Red Cell Distribution Width 12.4 10.0-14.5 % Platelet Count 209 130-400 10^3/uL Mean Platelet Volume 11.6 9.0-12.2 fL Immature Granulocyte % (Auto) 0 % Neutrophils (%) (Auto) 57 42-75 % Lymphocytes (%) (Auto) 31 12-44 % Monocytes (%) (Auto) 9 0-12 % Eosinophils (%) (Auto) 2 0-10 % Basophils (%) (Auto) 1 0-10 % Neutrophils # (Auto) 5.3 1.8-7.8 10^3/uL Lymphocytes # (Auto) 2.9 1.0-4.0 10^3/uL Monocytes # (Auto) 0.9 0.0-1.0 10^3/uL Eosinophils # (Auto) 0.2 0.0-0.3 10^3/uL Basophils # (Auto) 0.1 0.0-0.1 10^3/uL Immature Granulocyte # (Auto) 0.0 0.0-0.1 10^3/uL D-Dimer <= 0.27 0.00-0.49 UG/ML Sodium Level 141 135-145 MMOL/L Potassium Level 3.7 3.6-5.0 MMOL/L Chloride Level 106 98-107 MMOL/L Carbon Dioxide Level 24 21-32 MMOL/L Anion Gap 11 5-14 MMOL/L Blood Urea Nitrogen 13 7-18 MG/DL Creatinine 1.18 0.60-1.30 MG/DL Estimat Glomerular Filtration Rate > 60 BUN/Creatinine Ratio 11 Glucose Level 109 H 70-105 MG/DL Calcium Level 9.3 8.5-10.1 MG/DL Corrected Calcium 9.2 8.5-10.1 MG/DL Total Bilirubin 0.4 0.1-1.0 MG/DL Aspartate Amino Transf (AST/SGOT) 28 5-34 U/L Alanine Aminotransferase (ALT/SGPT) 43 0-55 U/L Alkaline Phosphatase 53 40-136 U/L Troponin I < 0.028 <0.028 NG/ML C-Reactive Protein High Sensitivity 0.24 0.00-0.50 MG/DL Total Protein 7.3 6.4-8.2 GM/DL Albumin 4.1 3.2-4.5 GM/DL My Orders Orders - CELINE SULLIVAN SUPERVISOR EDUCATION Cbc With Automated Diff (07/06/20 20:14) Hs C Reactive Protein (07/06/20 20:14) Troponin I (07/06/20 20:14) Ekg Tracing (07/06/20 20:14) Chest 1 View, Ap/Pa Only (07/06/20 20:14) Fibrin Degradation Products (07/06/20 20:14) Ed Iv/Invasive Line Start (07/06/20 20:14) Comprehensive Metabolic Panel (07/06/20 20:57) Ct Head Wo (07/06/20 21:04) Vital Signs/I&O 07/06/20 20:05 Temp 35.9 Pulse 78 Resp 16 B/P (MAP) 145/98 (114) Pulse Ox 98 O2 Delivery Room Air Capillary Refill : Departure Impression Primary Impression: Left arm pain Additional Impression: Left leg pain Disposition: HOME, SELF-CARE Condition: Stable Departure-Patient Inst. Decision time for Depature: 22:05 Referrals: [facility] (PCP/Family) Primary Care Physician Patient Instructions: Acute Pain, Adult Add. Discharge Instructions: 1. Return to ER for any concerns. Follow-up with [facility]. Call tomorrow for a time. CELINE SULLIVAN APRN Jul 06, 2020 20:22
[2020-07-06 20:31] LABS: BASOPHILS # (AUTO) 0.1 10^3/uL (0.0-0.1); BASOPHILS % (AUTO) 1 % (0-10); EOSINOPHILS # (AUTO) 0.2 10^3/uL (0.0-0.3); EOSINOPHILS % (AUTO) 2 % (0-10); HEMATOCRIT 45 % (40-54); HEMOGLOBIN 15.1 g/dL (13.3-17.7); LYMPHOCYTES # (AUTO) 2.9 10^3/uL (1.0-4.0); LYMPHOCYTES % (AUTO) 31 % (12-44); MEAN CORPUSCULAR HEMOGLOBIN 28 pg (25-34); MEAN CORPUSCULAR HGB CONC 34 g/dL (32-36); MEAN CORPUSCULAR VOLUME 84 fL (80-99); MEAN PLATELET VOLUME 11.6 fL (9.0-12.2); MONOCYTES # (AUTO) 0.9 10^3/uL (0.0-1.0); MONOCYTES % (AUTO) 9 % (0-12); NEUTROPHILS # (AUTO) 5.3 10^3/uL (1.8-7.8); NEUTROPHILS % (AUTO) 57 % (42-75); PLATELET COUNT 209 10^3/uL (130-400); WHITE BLOOD COUNT 9.4 10^3/uL (4.3-11.0)
--- NOTE | 2020-07-06 21:05 | Diagnostic Imaging Report ---
INDICATION: Chest pain Frontal chest obtained at 0841 p.m. Heart and mediastinal silhouette are normal in appearance. The lungs are clear. There is no pneumothorax or pleural fluid. IMPRESSION: Negative chest. Dictated by: Dictated on workstation # [id number]
[2020-07-06 21:15] LABS: ALBUMIN 4.1 GM/DL (3.2-4.5); CHLORIDE 106 MMOL/L (98-107); POTASSIUM 3.7 MMOL/L (3.6-5.0); SODIUM 141 MMOL/L (135-145)
[2020-07-06 21:16] LABS: CALCIUM 9.3 MG/DL (8.5-10.1)
[2020-07-06 21:17] LABS: GLUCOSE 109 MG/DL (70-105); TOTAL PROTEIN 7.3 GM/DL (6.4-8.2)
[2020-07-06 21:18] LABS: CARBON DIOXIDE 24 MMOL/L (21-32)
[2020-07-06 21:19] LABS: BILIRUBIN,TOTAL 0.4 MG/DL (0.1-1.0)
[2020-07-06 21:21] LABS: ALKALINE PHOSPHATASE 53 U/L (40-136); CREATININE SERUM 1.18 MG/DL (0.60-1.30); GFR ESTIMATED > 60
[2020-07-06 21:22] LABS: BUN/CREATININE RATIO 11
[2020-07-06 21:24] LABS: ALANINE AMINOTRANSFERASE 43 U/L (0-55)
--- NOTE | 2020-07-06 21:39 | Diagnostic Imaging Report ---
INDICATION: Headache. TECHNIQUE: Multiple contiguous axial images were obtained through the brain without the use of intravenous contrast. Auto Exposure Controls were utilized during the CT exam to meet ALARA standards for radiation dose reduction. COMPARISON: There is no prior head CT for comparison. There were no extra-axial fluid collections. No intracranial hemorrhage. No intracranial mass or mass effect. No midline shift. The ventricles are normal in size and position. There were no focal parenchymal abnormalities in the brain. Orbital contents appear unremarkable. Calvarial windows are normal. Visualized portions of the mastoid air cells and paranasal sinuses are clear. IMPRESSION: Negative noncontrast brain CT. Dictated by: Dictated on workstation # [id number]
[2020-07-06 22:10] VITALS: BP 145/98
== END 2020-07-06 22:10 | disposition home or self-care (01) ==
LOC: EDUNIT# 19:55 → ER 19:57
DX: M79.602 Pain in left arm (principal); M79.605 Pain in left leg; Z83.3 Family history of diabetes mellitus
CPT/HCPCS: 36415; 70450; 71045; 80053; 84484; 85025; 85379; 86141; 93005

== ENCOUNTER 2021-04-21 16:00 | Emergency (ER) | payer OTHER ==
[~2021-04-21] VITALS: Ht 165 cm; Wt 90.0 kg
--- NOTE | 2021-04-21 17:02 | ED Headache ---
General Chief Complaint: Head/Cervical Problems Stated Complaint: HEADACHES Nursing Triage Note: ARRIVED VIA AMB WITH COMPLAINTS OF A HEADACHE STARTING 3 WEEKS AGO. HAS BEEN TO [facility] AND HAS BEEN TAKING OTC MEDS THAT HAVE NOT HELPED. Source: patient, spouse (RUDDY THOMAS DO) History of Present Illness Date Seen by Provider: Apr 21, 2021 Time Seen by Provider: 16:45 Initial Comments PT ARRIVES VIA POV WITH PT LEFT WORK EARLY TODAY, AND CAME TO ER WORKS AT [employer], WENT TO WORK AT 1400, AND LEFT ABOUT AN HOUR LATER, DUE TO HEADACHE C/O HEADACHE FOR THE LAST 2-3 WEEKS PAIN IS IN OCCIPITAL AREA HEADACHE DID COME AND GO, BUT HAS BEEN CONSTANT FOR THE LAST 2 DAYS, BUT HAS BEEN ABLE TO SLEEP C/O DIZZINESS LAST PM AND THIS AM NO FEVER OR RECENT ILLNESS AND NO URI SYMPTOMS C/O MILD NECK SORENESS BUT NOT STIFFNESS NO VISION CHANGES NO NAUSEA/VOMITING OCCASIONALLY HAS TINGLING IN BOTH HANDS--LEFT > RIGHT HAS TAKEN EXCEDRIN AND ALEVE WITH MINIMAL IMPROVEMENT TOOK ALEVE AT 1400 TODAY NO HISTORY OF SIMILAR STATES HIS ONLY MEDICAL HISTORY IS ASTHMA, AND HAS NOT HAD PROBLEMS RECENTLY AND DOES NOT TAKE DAILY MEDICATION FOR ASTHMA OR FOR ANYTHING LATER STATES THAT HE HAS BEEN DX WITH HTN AND HIGH CHOLESTEROL AND HAS BEEN PRESCRIBED MEDICATIONS FOR THESE PROBLEMS, BUT STATES HE QUIT TAKING THEM ABOUT A YEAR AGO--"BECAUSE HIS BLOOD PRESSURE WAS NORMAL" WENT TO [facility] LAST WEEK FOR THIS PROBLEM, NO TESTS DONE AT THAT TIME, HAD LAB DRAW TODAY--NO RESULTS PT HAS NOT HAD COVID-19 VACCINE PCP: [facility] (RUDDY THOMAS DO) Allergies and Home Medications Allergies Coded Allergies: No Known Drug Allergies (Unverified , 01/12/13) Patient Home Medication List Home Medication List Reviewed: Yes (RUDDY THOMAS DO) Butalbital/Acetaminophen (Butalbital-Acetaminophn 25-325) 1 Each Tablet, 1 EACH PO Q8H PRN for severe headache Prescribed by: DANY GREEN on 04/21/211835 Cyclobenzaprine HCl (Cyclobenzaprine HCl) 10 Mg Tablet, 10 MG PO Q8H PRN for neck pain Prescribed by: DANY GREEN on 04/21/211833 Pantoprazole Sodium (Protonix) 40 Mg Tablet.dr, 40 MG PO DAILY Prescribed by: JOSE MARIA WINN on 01/31/17 1040 Review of Systems Review of Systems Constitutional: No chills, No diaphoresis; dizziness; No fever, No malaise, No weakness Eyes: No Symptoms Reported; Denies Blurred Vision, Denies Decreased Acuity Ears, Nose, Mouth, Throat: no symptoms reported Respiratory: no symptoms reported Cardiovascular: no symptoms reported Gastrointestinal: no symptoms reported Genitourinary: no symptoms reported Musculoskeletal: see HPI, neck pain Skin: no symptoms reported Psychiatric/Neurological: See HPI, Headache, Tingling (RUDDY THOMAS DO) Past Wuthsnx-Hajmwp-Wjobum Hx Patient Social History Tobacco Use?: No Smoking Status: Never a Smoker Use of E-Cig and/or Vaping dev: No Substance use?: No Alcohol Use?: No (RUDDY THOMAS DO) Immunizations Up To Date Tetanus Booster (TDap): Unknown (RUDDY THOMAS DO) Seasonal Allergies Seasonal Allergies: No (RUDDY THOMAS DO) Past Medical History Surgeries: Yes Appendectomy Respiratory: Yes Asthma Cardiac: Yes High Cholesterol, Hypertension Neurological: No Reproductive Disorders: No Genitourinary: Yes Kidney Stones Gastrointestinal: Yes (GALL STONES) Musculoskeletal: No Endocrine: No Cancer: No Psychosocial: No Integumentary: No Blood Disorders: No (RUDDY THOMAS DO) Family Medical History Diabetes (RUDDY THOMAS DO) Physical Exam Vital Signs Vital Signs - First Documented 04/21/21 16:42 Temp 36.8 Pulse 80 Resp 16 B/P (MAP) 146/101 (116) Pulse Ox 97 O2 Delivery Room Air (DANY GREEN MD) Vital Signs Capillary Refill : Less Than 3 Seconds (RUDDY THOMAS DO) Height, Weight, BMI Height: 5'7" Weight: 198lbs. oz. 89.400474bk; 33.00 BMI Method:Stated General Appearance: WD/WN, no apparent distress HEENT: PERRL/EOMI, normal ENT inspection Neck: full range of motion, supple, normal inspection, tender lateral (MILD CERVICAL MUSCLE TENDERNESS, NO RIGIDITY) Cardiovascular: regular rate, rhythm, no murmur Respiratory: normal breath sounds, no respiratory distress, no accessory muscle use Gastrointestinal: non tender, soft Back: normal inspection Extremities: normal inspection Psychiatric: alert, oriented x 3 Crainal Nerves: normal hearing, normal speech, PERRL Coordination/Gait: normal finger to nose, normal gait Motor/Sensory: no motor deficit, no sensory deficit, no pronator drift Reflexes: 2+ Bicep (R), 2+ Bicep (L), 2+ Knee (R), 2+ Knee (L) Skin: normal color, warm/dry (MARTHA,RUDDY K DO) Progress/Results/Core Measures Results/Orders Lab Results Laboratory Tests Test 04/21/21 17:03 04/21/21 17:07 Range/Units White Blood Count 10.6 4.3-11.0 10^3/uL Red Blood Count 5.51 4.30-5.52 10^6/uL Hemoglobin 16.0 13.3-17.7 g/dL Hematocrit 46 40-54 % Mean Corpuscular Volume 84 80-99 fL Mean Corpuscular Hemoglobin 29 25-34 pg Mean Corpuscular Hemoglobin Concent 35 32-36 g/dL Red Cell Distribution Width 11.9 10.0-14.5 % Platelet Count 214 130-400 10^3/uL Mean Platelet Volume 12.0 9.0-12.2 fL Immature Granulocyte % (Auto) 0 % Neutrophils (%) (Auto) 68 42-75 % Lymphocytes (%) (Auto) 22 12-44 % Monocytes (%) (Auto) 8 0-12 % Eosinophils (%) (Auto) 1 0-10 % Basophils (%) (Auto) 1 0-10 % Neutrophils # (Auto) 7.3 1.8-7.8 10^3/uL Lymphocytes # (Auto) 2.3 1.0-4.0 10^3/uL Monocytes # (Auto) 0.9 0.0-1.0 10^3/uL Eosinophils # (Auto) 0.1 0.0-0.3 10^3/uL Basophils # (Auto) 0.1 0.0-0.1 10^3/uL Immature Granulocyte # (Auto) 0.0 0.0-0.1 10^3/uL Erythrocyte Sedimentation Rate 2 0-15 MM/HR Sodium Level 140 135-145 MMOL/L Potassium Level 3.8 3.6-5.0 MMOL/L Chloride Level 107 98-107 MMOL/L Carbon Dioxide Level 22 21-32 MMOL/L Anion Gap 11 5-14 MMOL/L Blood Urea Nitrogen 10 7-18 MG/DL Creatinine 0.99 0.60-1.30 MG/DL Estimat Glomerular Filtration Rate 83 BUN/Creatinine Ratio 10 Glucose Level 102 70-105 MG/DL Calcium Level 9.4 8.5-10.1 MG/DL Corrected Calcium 9.2 8.5-10.1 MG/DL Magnesium Level 2.0 1.6-2.4 MG/DL Total Bilirubin 0.6 0.1-1.0 MG/DL Aspartate Amino Transf (AST/SGOT) 30 5-34 U/L Alanine Aminotransferase (ALT/SGPT) 40 0-55 U/L Alkaline Phosphatase 60 40-136 U/L C-Reactive Protein High Sensitivity 0.27 0.00-0.50 MG/DL Total Protein 7.4 6.4-8.2 GM/DL Albumin 4.2 3.2-4.5 GM/DL SARS-CoV-2 RNA (RT-PCR) Not Detected Not Detecte (DANY GREEN MD) My Orders Orders - DANY GREEN MD Ketorolac Injection (Toradol Injection) (04/21/21 18:15) Orphenadrine Inj (Ed Only) (Norflex Inje (04/21/21 18:15) (DANY GREEN MD) Medications Given in ED Current Medications Medications Dose Ordered Sig/Sai Route Start Time Stop Time Status Last Admin Dose Admin Ketorolac Tromethamine 15 mg ONCE ONCE IVP 04/21/21 18:15 04/21/21 18:23 DC 04/21/21 18:32 15 MG Orphenadrine Citrate 60 mg ONCE ONCE IV 04/21/21 18:15 04/21/21 18:23 DC 04/21/21 18:32 60 MG (DANY GREEN MD) Vital Signs/I&O 04/21/21 16:42 Temp 36.8 Pulse 80 Resp 16 B/P (MAP) 146/101 (116) Pulse Ox 97 O2 Delivery Room Air (DANY GREEN MD) Blood Pressure Mean: 116 Progress Progress Note : Progress Note 1800--CARE TURNED OVER TO DR. GREEN, CT PENDING (RUDDY THOMAS DO) Progress Note : Time: 18:23 Progress Note Patient seen and examined by me. 41 yo with about 3 weeks of daily persistent headache. He states he has been working night shifts the last 3 weeks and only getting about 5 hours of sleep during the day. Taking over the counter aleve 2 tablets every 12 hours. Last dose about 2pm. He states he saw [facility] last week and was supposed to be prescribed a "headache medicine" but when they went to pick it up - it was not at the pharmacy and patient and thinks the [facility] doctor forgot to send it in. ALso a history of HTN, currently not on medications. He is quite high here in the ER. In the last 2 days some upper respiratory congestion, nasal fullness. And decided to come to the ER today because he felt dizzy with the headache. No hearing or vision changes. Currently rates his headache an "8". No nausea. No complaints of problems with balance or coordination. Nothing really makes the headache any better or worse. Physical examination unremarkable. No neurological deficits. No cerebellar findings. No nystagmus. Normal Finger to nose and negative Romberg. Normal strength and sensation. CN intact 2-12. Will treat with some IV toradol and norflex. Recommend good sleep hygeine. Some over the counter decongestants for his sinus fullness, with caution as his BP is quite high. Recommend follow up with [facility] regarding his blood pressure and possibly consider restarting him on antihypertensives. Work note. Plan of care discussed with the patient and family member, all questions are sought and answered. (DANY GREEN MD) Diagnostic Imaging Diagonstic Imaging: CT Plain Films/CT/US/NM/MRI: head Comments [facility] [place] NAME: SKYLER WILLIAMSON [facility] REC#: [id number] PT STATUS: REG ER : 1980 PHYSICIAN: RUDDY THOMAS DO ADMIT DATE: 04/21/21/ER Signed Date of Exam:04/21/21 CT HEAD/CERVICAL SPINE WO PROCEDURE: CT head and CT cervical spine without contrast. TECHNIQUE: Multiple contiguous axial images were obtained through the brain and cervical spine without the use of intravenous contrast. Sagittal and coronal reformations through the cervical spine were then performed. Auto Exposure Controls were utilized during the CT exam to meet ALARA standards for radiation dose reduction. INDICATION: Headache for 3 weeks. Neck pain. No known trauma. COMPARISON: 07/06/2020. FINDINGS: CT head: No large acute territorial ischemia, mass, or hemorrhage. No midline shift or mass effect. The ventricles, cortical sulci, and basilar cisterns are patent and unremarkable. The calvarium is intact. Small amount of retained secretions are seen in the bilateral maxillary sinuses. The mastoid air cells are clear. CT cervical spine: No acute fracture or dislocation is seen in the cervical spine. No focal osseous lesions. Vertebral body heights are well-maintained. The craniocervical junction is well-maintained. The included lung apices are clear. Soft tissues of the neck are unremarkable. IMPRESSION: 1. No hemorrhage or focal intra-axial mass. No CT evidence of large acute territorial ischemia. 2. No acute fracture or dislocation in the cervical spine. Dictated by: Dictated on workstation # [id number] Dict: 04/21/21 180 Trans: 04/21/21 181 [facility] [id number] Interpreted by: REINA LOMELI DO Electronically signed by: REINA LOMELI DO 04/21/211809 (DANY GREEN MD) Departure Impression Primary Impression: Tension type headache Qualified Codes: G44.209 - Tension-type headache, unspecified, not intractable Additional Impression: High blood pressure Qualified Codes: I10 - Essential (primary) hypertension Disposition: 01 HOME, SELF-CARE Condition: Improved Departure-Patient Inst. Decision time for Depature: 18:30 (DANY GREEN MD) Referrals: [facility] (PCP/Family) Primary Care Physician Patient Instructions: High Blood Pressure ED, Tension Headache (DC) Add. Discharge Instructions: Be sure and drink plenty of fluids to stay well hydrated. I have prescribed a small dose of muscle relaxer, you can take this for the neck pain and headache; mostly at night - it may make you sleepy. Do not work or drive after taking the muscle relaxer. I have also prescribed you a medication called "FIORICET". Only take this medication 1 every 8 hours as needed for severe headache. I would recommend before sleep. Also, do not take this medication and work or drive because it will make you sleepy. This medication contains tylenol, do not take extra tylenol while taking this medication. You can obtain over the counter decongestants for the sinus fullness/drainage - Specifically CORICIDIN HBP is safe for patient's with high blood pressure - this can be obtained without a prescription at your pharmacy. Please follow up with [facility] regarding your elevated blood pressure and further management of headache. Return to the ER for any worsening symptoms of headache, especially with vomiting, balance/coordination issues, vision changes. Scripts Butalbital/Acetaminophen (Butalbital-Acetaminophn 25-325) 1 Each Tablet 1 EACH PO Q8H PRN for severe headache, #10 TAB Prov: DANY GREEN MD 04/21/21 Cyclobenzaprine HCl (Cyclobenzaprine HCl) 10 Mg Tablet 10 MG PO Q8H PRN for neck pain, #15 TAB Prov: DANY GREEN MD 04/21/21 Work/School Note: Work Release Form Date Seen in the Emergency Department: Apr 21, 2021 Return to Work: Apr 23, 2021 Copy Copies To 1: JESUS MANUEL GILLESPIE LISA K DO Apr 21, 2021 17:02 DANY GREEN MD Apr 21, 2021 18:30
[2021-04-21 17:12] LABS: BASOPHILS # (AUTO) 0.1 10^3/uL (0.0-0.1); BASOPHILS % (AUTO) 1 % (0-10); EOSINOPHILS # (AUTO) 0.1 10^3/uL (0.0-0.3); EOSINOPHILS % (AUTO) 1 % (0-10); HEMATOCRIT 46 % (40-54); LYMPHOCYTES # (AUTO) 2.3 10^3/uL (1.0-4.0); LYMPHOCYTES % (AUTO) 22 % (12-44); MEAN CORPUSCULAR HEMOGLOBIN 29 pg (25-34); MEAN CORPUSCULAR HGB CONC 35 g/dL (32-36); MEAN CORPUSCULAR VOLUME 84 fL (80-99); MONOCYTES # (AUTO) 0.9 10^3/uL (0.0-1.0); MONOCYTES % (AUTO) 8 % (0-12); NEUTROPHILS # (AUTO) 7.3 10^3/uL (1.8-7.8); NEUTROPHILS % (AUTO) 68 % (42-75); PLATELET COUNT 214 10^3/uL (130-400); WHITE BLOOD COUNT 10.6 10^3/uL (4.3-11.0)
[2021-04-21 17:29] LABS: ALBUMIN 4.2 GM/DL (3.2-4.5); POTASSIUM 3.8 MMOL/L (3.6-5.0)
[2021-04-21 17:31] LABS: CALCIUM 9.4 MG/DL (8.5-10.1); ERYTHROCYTE SEDIMENTATION RATE 2 MM/HR (0-15)
[2021-04-21 17:32] LABS: TOTAL PROTEIN 7.4 GM/DL (6.4-8.2)
[2021-04-21 17:34] LABS: BILIRUBIN,TOTAL 0.6 MG/DL (0.1-1.0)
[2021-04-21 17:36] LABS: CREATININE SERUM 0.99 MG/DL (0.60-1.30)
--- NOTE | 2021-04-21 18:08 | Diagnostic Imaging Report ---
PROCEDURE: CT head and CT cervical spine without contrast. TECHNIQUE: Multiple contiguous axial images were obtained through the brain and cervical spine without the use of intravenous contrast. Sagittal and coronal reformations through the cervical spine were then performed. Auto Exposure Controls were utilized during the CT exam to meet ALARA standards for radiation dose reduction. INDICATION: Headache for 3 weeks. Neck pain. No known trauma. COMPARISON: 07/06/2020. FINDINGS: CT head: No large acute territorial ischemia, mass, or hemorrhage. No midline shift or mass effect. The ventricles, cortical sulci, and basilar cisterns are patent and unremarkable. The calvarium is intact. Small amount of retained secretions are seen in the bilateral maxillary sinuses. The mastoid air cells are clear. CT cervical spine: No acute fracture or dislocation is seen in the cervical spine. No focal osseous lesions. Vertebral body heights are well-maintained. The craniocervical junction is well-maintained. The included lung apices are clear. Soft tissues of the neck are unremarkable. IMPRESSION: 1. No hemorrhage or focal intra-axial mass. No CT evidence of large acute territorial ischemia. 2. No acute fracture or dislocation in the cervical spine. Dictated by: Dictated on workstation # [id number]
[2021-04-21] MEDS ORDERED: ORPHENADRINE 60 MG/2 ML (NORFLEX) AMP (ED ONLY) IV ONE (18:15)
[2021-04-21] MEDS ORDERED: KETOROLAC 30 MG/ML VIAL IVP ONE (18:15)
[2021-04-21] MEDS ORDERED: CYCL10TA9 PO (18:34)
[2021-04-21] MEDS ORDERED: [UNRECOGNIZED DRUG - CODE] PO (18:36)
[2021-04-21 19:40] VITALS: BP 140/89
== END 2021-04-21 19:36 | disposition home or self-care (01) ==
LOC: EDUNIT# 16:00 → ER 16:02
DX: G44.209 Tension-type headache, unspecified, not intractable (principal); I10 Essential (primary) hypertension; J45.909 Unspecified asthma, uncomplicated; Z20.822 Contact with and (suspected) exposure to COVID-19
CPT/HCPCS: 36415; 70450; 72125; 80053; 83735; 85025; 85652; 86141; 87636